=== PATIENT | female | born 1980 | race Caucasian/White ===

== ENCOUNTER 2016-12-16 09:43 | Inpatient (IN) | payer OTHER ==
[~2016-12-16] VITALS: Ht 170.2 cm; Wt 95.0 kg
[2016-12-16] MEDS ORDERED: OXYTOCIN 30U/ 0.9% NaCL 500ML 500 ML IV ONE (10:19)
[2016-12-16] MEDS ORDERED: FENTANYL PF 100 MCG/2ML IV PRN (10:30)
[2016-12-16] MEDS ORDERED: ONDANSETRON 2MG/ML, 2ML IVPush PRN (10:30)
[2016-12-16] MEDS ORDERED: FENTANYL PF 100 MCG/2ML IVPush PRN (10:30)
[2016-12-16] MEDS ORDERED: SODIUM CHLORIDE FLUSH 10ML SYR IVF PRN (10:30)
[2016-12-16] MEDS ORDERED: TERBUTALINE 1 MG/ML, 1ML IVPush PRN (10:30)
[2016-12-16] MEDS ORDERED: LIDOCAINE 1%, 20ML ONE (10:52)
[2016-12-16] MEDS ORDERED: NEWBORN KIT ONE (10:53)
[2016-12-16] MEDS ORDERED: OXYTOCIN 30U/ 0.9% NaCL 500ML 500 ML ONE ×2 (10:53→18:28)
[2016-12-16] MEDS ORDERED: MISOPROSTOL 200 MCG TABLET ONE (10:53)
[2016-12-16] MEDS: D5%-LACTATED RINGERS 1,000 ML IV SCH ×4 (11:04→19:04)
[2016-12-16 11:10] VITALS: BP 139/78
[2016-12-16 11:18] LABS: HEMATOCRIT 38.5 % (34.6-47.8); HEMOGLOBIN 13.2 g/dL (11.7-16.4); WHITE BLOOD COUNT 28.2 x10^3/uL (3.4-10)
[2016-12-16] MEDS: LACTATED RINGERS 1,000 ML IV SCH ×2 (11:28→18:43)
[2016-12-16] MEDS ORDERED: LACTATED RINGERS 1,000 ML IV SCH (11:31)
[2016-12-16] MEDS ORDERED: FENTANYL/BUPIV./NS/PF 250 ML EPIDCONT SCH (11:31)
[2016-12-16] MEDS ORDERED: BUPIVACAINE/PF 0.25% ONE (11:33)
[2016-12-16] MEDS ORDERED: FENTANYL/BUPIV./NS/PF 250 ML EPIDCONT ONE ×2 (11:33→11:35)
[2016-12-16 12:00] LABS: DIFF TOTAL CELLS COUNTED 100 CELL DIFF
[2016-12-16] MEDS ORDERED: EPHEDRINE 50 MG/ML, 1ML IVPush PRN (12:00)
[2016-12-16] MEDS ORDERED: LACTATED RINGERS 1,000 ML IVBOLUS PRN (12:00)
[2016-12-16] MEDS ORDERED: NALOXONE 0.4 MG/ML, 1ML IVPush PRN (12:00)
[2016-12-16 12:03] LABS: VERIFY COUNTS? YES
[2016-12-16] MEDS ORDERED: METHYLERGONOVINE 0.2 MG/ML IM PRN (17:30)
[2016-12-16] MEDS ORDERED: MISOPROSTOL 200 MCG TABLET PR PRN (17:30)
[2016-12-16] MEDS ORDERED: ONDANSETRON 2MG/ML, 2ML IV PRN (17:30)
[2016-12-16] MEDS ORDERED: OXYcodone/APAP 5/325MG TABLET PO PRN (17:30)
[2016-12-16] MEDS: OXYTOCIN 30U/ 0.9% NaCL 500ML 500 ML IV SCH (18:42)
[2016-12-16] MEDS ORDERED: IBUPROFEN 600 MG TABLET ONE (18:54)
[2016-12-16] MEDS: IBUPROFEN 600 MG TABLET PO PRN (19:09)
[2016-12-16 20:20] VITALS: BP 130/72
[2016-12-16 21:30] VITALS: BP 127/69
[2016-12-17] MEDS ORDERED: DIPH,PERTUSS(ACELL),TET VAC/PF NC IM-VACC ONE (00:30)
[2016-12-17 01:00] VITALS: BP 139/87
[2016-12-17 01:00] LABS: HEMATOCRIT 33.8 % (34.6-47.8); HEMOGLOBIN 11.4 g/dL (11.7-16.4); WHITE BLOOD COUNT 21.3 x10^3/uL (3.4-10)
[2016-12-17] MEDS: DOCUSATE 100 MG CAPSULE PO PRN ×3 (01:11→21:14)
[2016-12-17] MEDS: IBUPROFEN 600 MG TABLET PO PRN ×4 (01:11→21:15)
[2016-12-17 01:22] LABS: DIFF TOTAL CELLS COUNTED 100 CELL DIFF
[2016-12-17 01:26] LABS: LARGE PLATELETS 1+; VERIFY COUNTS? YES
[2016-12-17] MEDS: OXYTOCIN 30U/ 0.9% NaCL 500ML 500 ML IV SCH (03:04)
[2016-12-17 05:20] VITALS: BP 112/66
[2016-12-17 07:30] VITALS: BP 102/65
[2016-12-17] MEDS ORDERED: PRENATAL VIT/IRON/FA 1 EACH TABLET ONE (07:30)
[2016-12-17] MEDS: PRENATAL VIT/IRON/FA 1 EACH TABLET PO SCH (07:35)
[2016-12-17] MEDS ORDERED: IBUP-1222 PO (10:26)
[2016-12-17 12:30] VITALS: BP 112/70
[2016-12-17 16:00] VITALS: BP 118/71
[2016-12-17] MEDS: OXYcodone/APAP 5/325MG TABLET PO PRN (21:15)
[2016-12-17 22:00] VITALS: BP 130/75
[2016-12-18] MEDS: OXYcodone/APAP 5/325MG TABLET PO PRN (01:27)
[2016-12-18 07:30] VITALS: BP 135/81
[2016-12-18] MEDS: PRENATAL VIT/IRON/FA 1 EACH TABLET PO SCH (07:32)
[2016-12-18] MEDS: DOCUSATE 100 MG CAPSULE PO PRN (07:32)
[2016-12-18] MEDS: IBUPROFEN 600 MG TABLET PO PRN ×2 (07:32→13:20)
== END 2016-12-18 13:41 | disposition home or self-care (01) | DRG 775 ==
LOC: EDSTATUS 09:43 → LDOP 09:43 → LDIP 10:15 → 2NW 20:00
PROVIDERS: ADMIT Obstetrics & Gynecology; ATTEND Obstetrics & Gynecology
PROC: 10E0XZZ Delivery of Products of Conception, External Approach (ICD-10-PCS; principal; 2016-12-16)
PROC: 0UQMXZZ Repair Vulva, External Approach (ICD-10-PCS; 2016-12-16)
PROC: 3E0S3CZ (ICD-10-PCS; 2016-12-16)
PROC: 00HU33Z Insertion of Infusion Device into Spinal Canal, Percutaneous Approach (ICD-10-PCS; 2016-12-16)
DX: O09.523 Supervision of elderly multigravida, third trimester (principal); O70.0 First degree perineal laceration during delivery; Z3A.39 39 weeks gestation of pregnancy; Z37.0 Single live birth
CPT/HCPCS: 36415; 85025; 86850; 86900; J2590; J3010; J7120; J7121